=== PATIENT | male | born 1980 ===

== ENCOUNTER → 2018-05-20 | Outpatient (REF) | payer OTHER ==
[2018-05-20 10:40] LABS: SEMEN APPEARANCE OPAQUE (OPAQUE); SEMEN VISCOSITY LIQUID (LIQUID); SEMEN VOLUME 5.5 ml (4.0-5.0); WBC CONCENTRATION >1 M/ml (<=1 M/ml)
[2018-05-20 10:42] LABS: SPERM CONCENTRATION 51.3 M/ml (>=15.0)
== END ==
LOC: M LAB REF 09:24
PROVIDERS: ATTEND Obstetrics & Gynecology
DX: N46.8 Other male infertility (principal)